=== PATIENT | male | born 2000 | race Caucasian/White ===

== ENCOUNTER 2024-04-14 16:22 | Outpatient (CLI) | payer SELFPAY | END 2024-04-14 16:23 | disposition home or self-care (01) | LOC: LKVREF 16:23 | PROVIDERS: Visit Provider Family Medicine | DX: R03.0 Elevated blood-pressure reading, without diagnosis of hypertension (principal); R59.0 Localized enlarged lymph nodes; R53.83 Other fatigue | CPT/HCPCS: 80053; 80061 ==

== ENCOUNTER 2024-04-20 10:59 | Outpatient (CLI) | payer SELFPAY ==
--- NOTE | 2024-04-20 11:15 | CRLHL7_ITS ---
For Patients: As a result of the Cures Act, medical imaging exams and procedure reports are released immediately into your electronic medical record. You may view this report before your referring provider. If you have questions, please contact your health care provider. Indication: Localized enlarged lymph nodes Technique: Grayscale and color Doppler ultrasound of the left lateral neck performed. Comparison: None Findings: Left cervical lymph node is present measuring 1.6 x 0.3 x 0.8 cm. Additional left cervical lymph node measures 9 x 4 x 11 millimeters. Submandibular left cervical lymph node measures 1.2 x 0.5 x 0.7 cm. No abnormal vascularity. Central fatty rubi noted. Impression: Mildly reactive left cervical lymph nodes. No abscess. Dictated by Paul Klein MD @ 04/20/2024 12:31:43 PM (Electronically Signed)
== END 2024-04-20 11:00 | disposition home or self-care (01) ==
LOC: US 11:02
PROVIDERS: PCP Family Medicine; Visit Provider Family Medicine
DX: R59.0 Localized enlarged lymph nodes (principal)
CPT/HCPCS: 76536